=== PATIENT | female | born 1950 | race Caucasian/White ===

== ENCOUNTER 2018-09-29 10:57 | Emergency (ER) | payer MEDICARE ==
[~2018-09-29] VITALS: Ht 154.9 cm; Wt 83.0 kg
[2018-09-29] MEDS ORDERED: MAG-OX 400400 MG PO (11:14)
[2018-09-29] MEDS ORDERED: ASPIRIN81 MG PO (11:14)
[2018-09-29] MEDS ORDERED: LISINOPRIL20 MG PO (11:15)
[2018-09-29] MEDS ORDERED: CRESTOR10 MG PO (11:16)
[2018-09-29] MEDS ORDERED: D3 MAXIMUM5000 UNI1 PO (11:16)
[2018-09-29] MEDS ORDERED: ALLOPURINOL100 MG PO (11:17)
[2018-09-29] MEDS ORDERED: HYDRALAZINE25 MG PO (11:18)
[2018-09-29] MEDS ORDERED: TRESIBA FL100 UNIT/M SC (11:19)
[2018-09-29] MEDS ORDERED: TOPROL XL100 MG PO (11:19)
[2018-09-29] MEDS ORDERED: CLONIDINE0.1 MG PO (11:20)
[2018-09-29] MEDS ORDERED: HYDROCHLOROT25 MG PO (11:20)
[2018-09-29] MEDS ORDERED: NOVOLOG100 UNIT/M SC (11:21)
[2018-09-29 11:34] LABS: URINE BILIRUBIN - DIPSTICK NEGATIVE (NEGATIVE); URINE BLOOD DIPSTICK LARGE (NEGATIVE); URINE COLOR YELLOW; URINE GLUCOSE - DIPSTICK >=1000 mg/dL (NEGATIVE); URINE KETONE NEGATIVE (NEGATIVE); URINE LEUK ESTERASE NEGATIVE (NEGATIVE); URINE NITRITE - DIPSTICK NEGATIVE (Negative); URINE PROTEIN - DIPSTICK 100 mg/dL (NEG-TRACE); URINE SPECIFIC GRAVITY 1.025; URINE UROBILINOGEN - DIPSTICK 0.2 E.U./dL (0.2)
[2018-09-29 11:38] LABS: URINE CLARITY TURBID
[2018-09-29 11:57] LABS: URINE RBC TNTC RBC/hpf (0-5); URINE SQUAMOUS EPITHELIAL CELL FEW EPI/hpf (0-FEW)
[2018-09-29 12:22] LABS: HEMATOCRIT 37.6 % (37.0-47.0); HEMOGLOBIN 11.9 g/dl (12.0-16.0); IMMATURE GRANULOCYTES 1.3 % (0.0-5.0); MEAN CELL VOLUME 95.7 fL CALC (80.0-100.0); MEAN CORPUSCULAR HGB 30.3 pG CALC (26.0-32.0); MEAN CORPUSCULAR HGB CONC 31.6 g/L CALC (32.0-36.0); NEUT# 9.91 thou/uL (2.00-7.15); RED BLOOD COUNT 3.93 mill/uL (4.20-5.60); RED CELL DISTRI WIDTH 14.6 % (11.5-15.5)
[2018-09-29 12:46] LABS: ALBUMIN 3.1 g/dL (3.2-5.0); BILIRUBIN, TOTAL 0.3 mg/dL (0.0-1.4); CREATININE 2.7 mg/dL (0.5-1.0); POTASSIUM 5.1 mmol/l (3.5-5.1); TOTAL PROTEIN 5.8 g/dL (6.3-8.2)
[2018-09-29] MEDS ORDERED: CIPROFLOXACN500 MG PO (12:57)
[2018-09-29] MEDS ORDERED: PYRIDIUM200 MG PO (12:57)
[2018-09-29 12:59] VITALS: BP 170/65
== END 2018-09-29 13:00 | disposition home or self-care (01) ==
LOC: ED 10:57
PROVIDERS: Emergency Medicine
DX: N30.91 Cystitis, unspecified with hematuria (principal)

== ENCOUNTER 2018-09-29 18:13 | Inpatient (IN) | payer MEDICARE ==
[~2018-09-29] VITALS: Ht 154.9 cm; Wt 97.0 kg
[~2018-09-29 18:13] MED LIST: ALLOPURINOL100 MG PO; ASPIRIN81 MG PO; CIPROFLOXACN500 MG PO; CLONIDINE0.1 MG PO; CRESTOR10 MG PO; D3 MAXIMUM5000 UNI1 PO; HYDRALAZINE25 MG PO; HYDROCHLOROT25 MG PO; LISINOPRIL20 MG PO; MAG-OX 400400 MG PO; NOVOLOG100 UNIT/M SC; PYRIDIUM200 MG PO; TOPROL XL100 MG PO; TRESIBA FL100 UNIT/M SC
--- NOTE | 2018-09-29 18:22 | NUR ---
PT TO ROOM VIA WHEELCHAIR, CRYING IN PAIN.
--- NOTE | 2018-09-29 18:34 | NUR ---
PT RETURNS TO THE ER FOR INCREASED BACK PAIN THAT RADIATES TO THE FRONT ABDOMEN. HAS BACK SPASMS IN LUMBAR AREA, PAIN UPON PALPTION OF FLANKS. PT IS AOX4. PT DENIES ANY C/P, SOB, N/V OR WEAKNESS.
--- NOTE | 2018-09-29 19:18 | NUR ---
PT BECAME NAUSEATED AFTER MORPHINE ADMINISTRATION AND VOMITED. ZOFRAN GIVEN PER MD VERBAL ORDER. PT STATED RELIEF AFTER ZOFRAN ADMINISTRATION
[2018-09-29 19:39] LABS: HEMATOCRIT 41.7 % (37.0-47.0); HEMOGLOBIN 13.3 g/dl (12.0-16.0); IMMATURE GRANULOCYTES 2.2 % (0.0-5.0); MEAN CELL VOLUME 94.3 fL CALC (80.0-100.0); MEAN CORPUSCULAR HGB 30.1 pG CALC (26.0-32.0); MEAN CORPUSCULAR HGB CONC 31.9 g/L CALC (32.0-36.0); NEUT# 16.16 thou/uL (2.00-7.15); RED BLOOD COUNT 4.42 mill/uL (4.20-5.60); RED CELL DISTRI WIDTH 14.6 % (11.5-15.5)
[2018-09-29 20:17] LABS: ALBUMIN 3.6 g/dL (3.2-5.0); ALKALINE PHOSPHATASE 119 u/l (38-126); AMYLASE 76 u/l (30-110); ANION GAP 16 (6-22 (CALC)); BILIRUBIN, TOTAL 0.4 mg/dL (0.0-1.4); BUN 54 mg/dL (8-23); BUN/CREATININE RATIO 19 (12-20 (CALC)); CARBON DIOXIDE 23 mmol/l (22-30); CHLORIDE 104 mmol/l (95-108); CREATININE 2.8 mg/dL (0.5-1.0); GFR 17 ML/MIN (>=60 (CALC)); GFR FOR AFR.AMER. 21 ML/MIN (>=60 (CALC)); LIPASE 570 u/l (23-300); POTASSIUM 4.8 mmol/l (3.5-5.1); SGOT/AST 32 u/l (9-36); SODIUM 138 mmol/l (137-146); TOTAL PROTEIN 6.6 g/dL (6.3-8.2)
--- NOTE | 2018-09-29 20:18 | NUR ---
PT RESTING ON STRETCHER, STATES NO COMPLAINTS
[2018-09-29 20:28] LABS: MYOGLOBIN 151 ng/mL (0 - 62)
--- NOTE | 2018-09-29 21:18 | NUR ---
PT TREATED FOR PAIN
--- NOTE | 2018-09-29 21:33 | NUR ---
REPORT CALLED TO KAROLINE MARTINEZ ACCEPTED PT
--- NOTE | 2018-09-29 22:03 | NUR ---
PT ARRIVED TO FLOOR VIA STRETCHER AT 2203. PT A/OX3. PT CRYING AND STATIG SHE IS HAVING PAIN IN BILATERAL FLANK AREA THAT RADIATES TO UPPER MED ABDOME. LUNGS CLEAR. BOWEL SOUND HYPOACTIVE. PULSES STRONG IN ALL EXTREMITIES. IV PATENT. NO OPEN AREAS NOTED. PT OBSESE. PT DENIES FALLING OR USING ASSISTIVE DEVICES. PT BP ELEVATED. MONITORING BP HYDRLIZINE GIVEN IN ER. PT HAS VANCOMYCIN RUNNING,NO ADVERSE REACTION NOTED.PT ON TELE SINUS RHTHYM AT THIS CURRENT TIME. POC DISCUSSED. BED IN LOWEST POSITION. CALL LIGHT IN REACH. WILL CONTINUE TO MONITOR.
--- NOTE | 2018-09-29 22:11 | NUR ---
Admission Note Report Given to: KAROLINE MARTINEZ Transported by: Wheelchair X Stretcher Transported with: X Nurse Transporter X Patent IV O2 X Location Man TRANSPORTED [place] [facility] [place]
[2018-09-29 22:20] VITALS: BP 180/64
--- NOTE | 2018-09-29 23:32 | NUR ---
PHARMACY CALLED TO FOLLOW UP ON PAIN MEDICATION. PHARMACY TO PUT INTO SYSTEM ROBIN.
[2018-09-30] VITALS (8 sets, daily range): BP systolic 125–194; BP diastolic 48–89
--- NOTE | 2018-09-30 01:25 | NUR ---
DR YI CALLED BECAUSE DEMEROL 15MG INEFFECTIVE. ORDERS RECIEVED FOR MORPHINE 2MG IV Q6HRS. ORDERS FAXED
--- NOTE | 2018-09-30 01:48 | NUR ---
UNABLE TO PULL MORPHINE FROM [facility]. RN PLATFORM POWER TECHNICIAN NOTIFIED.
--- NOTE | 2018-09-30 04:43 | NUR ---
DR YI CALLED TO CLARIFY IF HE WANT A SECOND CT TO ABDOMEN. PT HAS ALREADY HAD CT TO ABDOMEN DONE FROM PREVIOUS ER VISIT ON 09/29/18. DR ORDERED TO D/C CT TO ABDOMEN. HE WILL SEE FIRST. RADIOLOGY MADE AWARE. RESULTS FROM PREVIOUS AT TO ABDOMEN FAXED AND PLACED IN CHART.
[2018-09-30 05:13] LABS: HEMATOCRIT 39.2 % (37.0-47.0); HEMOGLOBIN 12.3 g/dl (12.0-16.0); IMMATURE GRANULOCYTES 1.2 % (0.0-5.0); MEAN CELL VOLUME 96.1 fL CALC (80.0-100.0); MEAN CORPUSCULAR HGB 30.1 pG CALC (26.0-32.0); MEAN CORPUSCULAR HGB CONC 31.4 g/L CALC (32.0-36.0); NEUT# 13.32 thou/uL (2.00-7.15); RED BLOOD COUNT 4.08 mill/uL (4.20-5.60); RED CELL DISTRI WIDTH 14.6 % (11.5-15.5)
[2018-09-30 05:29] LABS: BILIRUBIN, TOTAL 0.3 mg/dL (0.0-1.4); CREATININE 2.7 mg/dL (0.5-1.0); MAGNESIUM 2.1 mg/dL (1.6-2.3); TOTAL PROTEIN 5.6 g/dL (6.3-8.2)
[2018-09-30 05:34] LABS: POTASSIUM 5.2 mmol/l (3.5-5.1)
--- NOTE | 2018-09-30 06:58 | NUR ---
PT RUNNING V TACH ON MONITOR. LEADS CHECKED/ PT RESTING IN BED WITH EYES CLOSED. EKG ORDERED.
--- NOTE | 2018-09-30 07:00 | NUR ---
SHIFT CHANGE REPORT, PT AWAKE ALERT AND ORIENTED, C/O ABDOMINAL DISCOMFORT BUT STATED SHE HAD RELIEF FROM MED GIVEN EARLIER, TELE MONITOR IN PLACE, IVF INFUSING, CALL HERNANDEZ IN REACH.
--- NOTE | 2018-09-30 07:25 | NUR ---
EKG COMPLETED. READING NORMAL SINUS RYTHM. RESULTS PLACED ON CHART FOR MD TO READ.
--- NOTE | 2018-09-30 08:23 | NUR ---
0750 CANVAS GOODS MAKER REPORTED HR IN 170'S, ON ASSESSMENT PT SITTING UP IN BED TO EAT AND C/O ABD PAIN ON LEFT SIDE RAIDATING TO BACK, MONITOR CONTACTED AND REPORTED HR BACK IN 60'S.
--- NOTE | 2018-09-30 13:15 | NUR ---
RELAXING IN BED AT THIS TIME, C/O PAIN FROM MID ABD RADIATING TO LEFT SIDE-BACK, EATING MEAL SLOWLY AT TIHS TIME, SAID SHE IS AFRAID PAIN WILL BE AGGRAVATED BY EATING, WILL CONTINUE TO MONITOR AND ADDRESS NEEDS.
[2018-09-30 15:07] LABS: URINE BILIRUBIN - DIPSTICK NEGATIVE (NEGATIVE); URINE BLOOD DIPSTICK NEGATIVE (NEGATIVE); URINE CLARITY CLEAR; URINE COLOR YELLOW; URINE GLUCOSE - DIPSTICK >=1000 mg/dL (NEGATIVE); URINE KETONE NEGATIVE (NEGATIVE); URINE LEUK ESTERASE NEGATIVE (Negative); URINE NITRITE - DIPSTICK POSITIVE (Negative); URINE PH 5.5 (4.5-8.0); URINE PROTEIN - DIPSTICK 100 mg/dL (NEG-TRACE); URINE SPECIFIC GRAVITY 1.015; URINE UROBILINOGEN - DIPSTICK 0.2 E.U./dL (0.2)
[2018-09-30 15:18] LABS: URINE BACTERIA FEW hpf; URINE SQUAMOUS EPITHELIAL CELL FEW EPI/hpf (0-FEW)
--- NOTE | 2018-09-30 16:07 | NUR ---
SITTING UP IN RECLINER, C/O BEING COLD, WARM BLANKET OFFERED, SATISFIED AND APPRECIATIVE, WILL CONTINUE TO MONITOR.
[2018-10-01] VITALS (7 sets, daily range): BP systolic 104–139; BP diastolic 37–67
--- NOTE | 2018-10-01 02:48 | NUR ---
pt resting in bed. eyes closed. no pain noted or voiced. bed in lowest positoin. call light within reach. milind jimenez.
[2018-10-01 05:35] LABS: HEMOGLOBIN 10.5 g/dl (12.0-16.0); IMMATURE GRANULOCYTES 1.3 % (0.0-5.0); MEAN CELL VOLUME 96.9 fL CALC (80.0-100.0); MEAN CORPUSCULAR HGB 29.9 pG CALC (26.0-32.0); MEAN CORPUSCULAR HGB CONC 30.9 g/L CALC (32.0-36.0); NEUT# 7.53 thou/uL (2.00-7.15); RED BLOOD COUNT 3.51 mill/uL (4.20-5.60); RED CELL DISTRI WIDTH 14.6 % (11.5-15.5)
[2018-10-01 06:04] LABS: ALBUMIN 2.5 g/dL (3.2-5.0); BILIRUBIN, TOTAL 0.2 mg/dL (0.0-1.4); MAGNESIUM 1.8 mg/dL (1.6-2.3); TOTAL PROTEIN 4.8 g/dL (6.3-8.2)
[2018-10-01 06:09] LABS: POTASSIUM 5.2 mmol/l (3.5-5.1)
--- NOTE | 2018-10-01 07:20 | NUR ---
SHIFT REPORT, PT AWAKE ALERT AND ORIENTED, NO CHANGE IN STATUS.
--- NOTE | 2018-10-01 09:11 | NUR ---
PT INCONTINENT OF LARGE AMOUNT OF URINE. PT AMBUALTED TO BATHROOM, PERICARE AND LINEN CHANGE PROVIDED. PT UP TO CHAIR AT BEDSIDE. DENIES ANY FURTHER NEEDS AT THIS TIME.
--- NOTE | 2018-10-01 19:10 | NUR ---
BEDSIDE REPORT RECEIVED FROM MICHELLE FERNANDEZ. PT SITTING UP IN BED WITH [facility] AT BEDSIDE; ALERT AND ORIENTED. C/O LEFT FLANK PAIN THAT RADIATES TO LEFT LOWER ABDOMEN. RESPIRATIONS EVEN AND UNLABORED ON ROOM AIR. PT CURRENTLY WITHOUT IV ACCESS; TELE ON. PLAN OF CARE DISCUSSSED. PT ENCOURAGED TO VERBALIZE CONCERNS. STATES UNDERSTANDING. SAFETY MEASURES IN PLACE. CALL LIGHT WITHIN REACH.
--- NOTE | 2018-10-01 19:45 | NUR ---
NEW IV SITE PLACED ON LFA; LR AT 75 REPLACED. MORPHINE AND ZOFRAN GIVEN FOR PAIN AND NAUSEA.
[2018-10-02 00:30] VITALS: BP 112/57
--- NOTE | 2018-10-02 01:10 | NUR ---
PT NOW SITTING UP IN RECLINER ON CELL PHONE; CIPRO INFUSING WITHOUT DIFFICULTY; IV SITE APPEARS HEALTHY. VS STABLE BEFORE CLONIDINE PO. PT PLEASANT AND TALKATIVE. ONE PERSON ASSIST. SAFETY MEASURES IN PLACE. CALL LIGHT WITHIN REACH.
[2018-10-02 04:30] VITALS: BP 119/50
--- NOTE | 2018-10-02 04:31 | NUR ---
PT STILL AWAKE AND UP IN CHAIR AND TALKING TO STAFF. NO ACUTE CHANGES IN CONDITION THROUGHOUT THE NIGHT. NO REQUESTS OR CONCERNS AT THIS TIME. SAFETY MEASURES IN PLACE. CALL LIGHT WITHIN REACH.
[2018-10-02 05:11] LABS: HEMATOCRIT 33.6 % (37.0-47.0); HEMOGLOBIN 10.6 g/dl (12.0-16.0); IMMATURE GRANULOCYTES 0.9 % (0.0-5.0); MEAN CELL VOLUME 96.6 fL CALC (80.0-100.0); MEAN CORPUSCULAR HGB 30.5 pG CALC (26.0-32.0); MEAN CORPUSCULAR HGB CONC 31.5 g/L CALC (32.0-36.0); NEUT# 6.7 thou/uL (2.00-7.15); RED BLOOD COUNT 3.48 mill/uL (4.20-5.60); RED CELL DISTRI WIDTH 14.6 % (11.5-15.5)
[2018-10-02 05:40] LABS: ALBUMIN 2.9 g/dL (3.2-5.0); BILIRUBIN, TOTAL 0.3 mg/dL (0.0-1.4); CREATININE 2.8 mg/dL (0.5-1.0); MAGNESIUM 1.7 mg/dL (1.6-2.3); TOTAL PROTEIN 5.4 g/dL (6.3-8.2)
[2018-10-02 07:35] VITALS: BP 131/42
--- NOTE | 2018-10-02 08:00 | NUR ---
SITTING UP IN RECLINER, STATES PAIN IMPROVED AND NOW TOLERABLE AND ONLY INTERMITTENLY, VERBALIZES DESIRE TO GO HOME TODAY, EDUCATED REAGRDING D/C PROCESS AND VERBALIZES UNDERSTANDING, AM ASSESSMENT COMPLETED; SEE INTERVENTIONS, CALL HERNANDEZ WITHIN REACH, IVF CONTINUE, AND ACCU CHECK COMPLETED ORDERED, COVERAGE GIVEN PER PROTOCOL, WILL CONTINUE TO MONITOR.
--- NOTE | 2018-10-02 10:00 | NUR ---
CALL HERNANDEZ WITHIN REACH, REMAINS SITTING UP IN RECLINER. OFFERS NO NEW COMPLAINTS, WILL CONTINUE TO MONITOR.
[2018-10-02 11:44] VITALS: BP 148/50
[2018-10-02 11:55] VITALS: BP 148/50
--- NOTE | 2018-10-02 12:40 | NUR ---
PT REMAINS SITTING UP IN RECLINER, OFFERS NO NEW COMPLAINTS, CALL HERNANDEZ WITHIN REACH, WILL CONTINUE TO MONITOR.
--- NOTE | 2018-10-02 14:29 | NUR ---
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
--- NOTE | 2018-10-02 15:18 | NUR ---
D/C INSTRUCTIONS DISCUSSED, PT TO CALL [facility] FOR TRANSPORT HOME, CALL HERNANDEZ WITHIN REACH, WILL CONTINUE TO MONITOR.
--- NOTE | 2018-10-02 15:55 | NUR ---
Discharge instructions given. Patient verbalizes understanding of same. Discharged in stable condition via Wheelchair to Home with family. All belongings sent with pt.
== END 2018-10-02 15:57 | disposition home or self-care (01) | DRG 690 ==
LOC: ED 18:13 → ED-I 18:28 → ED 20:28 → MS2 20:29
PROVIDERS: Emergency Medicine; ADMIT Internal Medicine Nephrology; ATTEND Internal Medicine Nephrology
DX: N12 Tubulo-interstitial nephritis, not specified as acute or chronic (principal); Z68.41 Body mass index [BMI] 40.0-44.9, adult; N17.9 Acute kidney failure, unspecified; I12.9 Hypertensive chronic kidney disease with stage 1 through stage 4 chronic kidney disease, or unspecified chronic kidney disease; E11.22 Type 2 diabetes mellitus with diabetic chronic kidney disease; N18.4 Chronic kidney disease, stage 4 (severe); E78.5 Hyperlipidemia, unspecified; D63.1 Anemia in chronic kidney disease; E66.9 Obesity, unspecified; M10.9 Gout, unspecified
CPT/HCPCS: S0073

== ENCOUNTER 2019-07-03 18:58 | Inpatient (IN) | payer MEDICARE ==
[~2019-07-03] VITALS: Ht 154.9 cm; Wt 86.8 kg
--- NOTE | 2019-07-03 18:59 | NUR ---
BY WC TO ROOM
[2019-07-03 19:58] LABS: HEMATOCRIT 36.4 % (37.0-47.0); HEMOGLOBIN 11.5 g/dl (12.0-16.0); IMMATURE GRANULOCYTES 0.5 % (0.0-5.0); MEAN CELL VOLUME 94.3 fL CALC (80.0-100.0); MEAN CORPUSCULAR HGB 29.8 pG CALC (26.0-32.0); MEAN CORPUSCULAR HGB CONC 31.6 g/L CALC (32.0-36.0); NEUT# 15.98 thou/uL (2.00-7.15); RED BLOOD COUNT 3.86 mill/uL (4.20-5.60); RED CELL DISTRI WIDTH 14.6 % (11.5-15.5)
--- NOTE | 2019-07-03 19:58 | NUR ---
NASAL AND ORAL SWAB COMPLETE. BLOOD CULTURES DONE. PATIENT RESTING IN BED, NO S/S OF DISTRESS. ABLE TO MAKE NEEDS KNOWN.
[2019-07-03 20:20] LABS: ALBUMIN 3.6 g/dL (3.2-5.0); ALKALINE PHOSPHATASE 106 u/l (38-126); ANION GAP 13 (6-22 (CALC)); BILIRUBIN, TOTAL 0.3 mg/dL (0.0-1.4); BUN 62 mg/dL (8-23); BUN/CREATININE RATIO 20 (12-20 (CALC)); CARBON DIOXIDE 25 mmol/l (22-30); CHLORIDE 106 mmol/l (95-108); CREATININE 3.1 mg/dL (0.5-1.0); GFR 15 ML/MIN (>=60 (CALC)); GFR FOR AFR.AMER. 18 ML/MIN (>=60 (CALC)); LIPASE 127 u/l (23-300); MAGNESIUM 2.2 mg/dL (1.6-2.3); POTASSIUM 4.4 mmol/l (3.5-5.1); SGOT/AST 24 u/l (9-36); SODIUM 140 mmol/l (137-146)
--- NOTE | 2019-07-03 21:52 | NUR ---
PT ARRIVED TO FLOOR ON STRETCHER ACCOMPANIED BY ED NURSES X2. PT WAS ABLE TO AMBULATE TO STANDING SCALE AND TO BED. PT APPEARS TO BE IN STABLE CONDITION AT THIS TIME. PT ORIENTED TO ROOM,CALL SYSTEM, LIGHTS, BED AND TV. AIDE IN OBTAINING V/S. WILL FOLLOW-UP WITH FULL ASSESSMENT AND ANY MEDICATIONS ORDERS PROVIDE.
--- NOTE | 2019-07-03 21:54 | NUR ---
Admission Note Report Given to: MICHELLE BROWN Transported by: Wheelchair X Stretcher Transported with: X Nurse Transporter X Patent IV X O2 Color Print Inspector PT REPORT GIVEN TO MICHELLE BROWN. TRANSPORTED TO [place] VIA STRETCHER.
[2019-07-03 22:23] VITALS: BP 135/58
--- NOTE | 2019-07-03 22:49 | NUR ---
PT ASSESSMENT COMPLETED. PT IS VERY TALKATIVE AND REPORTS FEELING MUCH BETTER AFTER HAVING BREATHING TREATMENT IN ED. DENIES PAIN/N/V. POC DISCUSSED W/PT AND PT INSTRUCTED THAT WE NEED URINE,SPUTUM AND MRSA SAMPLE IF SHE IS OKAY WITH THIS, VERBALIZED UNDERSTANDING AND APPROVAL. PT SWABBED TO [place] FOR HISTORY OF MRSA AND CALL TO REGISTRATION WAS MADE TO COLLECT ORANGE ALERT BAND FOR PRECAUTIONS. NO S/O DISTRESS AT THIS TIME. WILL CONTINUE TO MONITOR. LUNG SOUNDS ARE WHEEZY THROUGHOUT. CALL LIGHT IS AT SIDE AND PT ENCOURAGED TO CALL. PT IS ASKING FOR FOOD/DRINK, PROVIDED.
[2019-07-03 22:50] VITALS: BP 154/59
[2019-07-04] VITALS (8 sets, daily range): BP systolic 146–187; BP diastolic 51–79
[2019-07-04 01:34] LABS: URINE BILIRUBIN - DIPSTICK NEGATIVE (NEGATIVE); URINE BLOOD DIPSTICK TRACE-INTACT (NEGATIVE); URINE COLOR YELLOW; URINE GLUCOSE - DIPSTICK 100 mg/dL (NEGATIVE); URINE KETONE NEGATIVE (NEGATIVE); URINE LEUK ESTERASE NEGATIVE (NEGATIVE); URINE NITRITE - DIPSTICK NEGATIVE (Negative); URINE PROTEIN - DIPSTICK 100 mg/dL (NEG-TRACE); URINE SPECIFIC GRAVITY 1.015; URINE UROBILINOGEN - DIPSTICK 0.2 E.U./dL (0.2)
[2019-07-04 01:43] LABS: URINE SQUAMOUS EPITHELIAL CELL FEW EPI/hpf (0-FEW); URINE WBC 0-2 WBC/hpf (0-5)
[2019-07-04 01:45] LABS: URINE EPITHELIAL CELLS FEW EPI/hpf (0-FEW)
--- NOTE | 2019-07-04 04:40 | NUR ---
MICHAEL IS IN W/PT OBTAINING V/S AT THIS TIME. PT WAS SLEEPING. LAB NOW IN W/PT ALSO. WHEN PHYSICAL THERAPY ATTENDANT ASKED IF PT HAS ANY NEEDS AT THIS TIME, SHE REPLIED, "YES TO BE LEFT ALONE TO SLEEP."
[2019-07-04 04:51] LABS: HEMATOCRIT 37.5 % (37.0-47.0); HEMOGLOBIN 11.9 g/dl (12.0-16.0); IMMATURE GRANULOCYTES 1.2 % (0.0-5.0); MEAN CELL VOLUME 93.1 fL CALC (80.0-100.0); MEAN CORPUSCULAR HGB 29.5 pG CALC (26.0-32.0); MEAN CORPUSCULAR HGB CONC 31.7 g/L CALC (32.0-36.0); NEUT# 15.06 thou/uL (2.00-7.15); RED BLOOD COUNT 4.03 mill/uL (4.20-5.60); RED CELL DISTRI WIDTH 14.4 % (11.5-15.5)
[2019-07-04 05:14] LABS: ALBUMIN 3.3 g/dL (3.2-5.0); BILIRUBIN, TOTAL 0.3 mg/dL (0.0-1.4); CREATININE 2.9 mg/dL (0.5-1.0); TOTAL PROTEIN 6.2 g/dL (6.3-8.2)
[2019-07-04 05:22] LABS: POTASSIUM 5.3 mmol/l (3.5-5.1)
--- NOTE | 2019-07-04 07:10 | NUR ---
REPORT RECEIVED FROM MICHELLE BROWN;PT RESTING IN SEMI FOWLERS POSITION;INTRODUCED SELF TO PT AND POC DISCUSSED;RESPIRATIONS SHALLOW ON O2 @ 2L VIA NC;PT DENIES ANY CURRENT PAIN OR DISCOMFORTS;TELE MONITORING IN PLACE;PT ENCOURAGED TO CALL FOR ASSISTANCE IF NEEDED;FALL PRECAUTIONS NOTED WITH BED IN THE LOWEST POSITION AND CALL LIGHT IN REACH;CONTACT PRECAUTIONS NOTED FOR HX OF MRSA;WILL CONTINUE TO MONITOR
--- NOTE | 2019-07-04 08:25 | NUR ---
PT AMBULATING BACK FROM RESTROOM WITH A STEADY GAIT AFTER HAVING A LARGE/LOOSE BM;RE-POSITIONED BACK INTO BED;A&O X3; VS OBTAINED AND ASSESSMENT COMPLETED, CURRENT BP 187/70 HR 86;ALL MORNING MEDICATIONS TO BE ADMINISTERED;PT DENIES ANY CURRENT PAIN OR DISCOMFORTS, REPORTS SOB ON EXERTION;PAIN SCALE AND REPORTING EDUCATED;RESPIRATIONS EVEN AND UNLABORED, SHALLOW ON O2 @ 2L VIA NC,COARSE/WHEEZY LUNG SOUNDS;NON-PRODUCTIVE COUGH NOTED AT TIMES;ABDOMEN DISTENDED/SOFT ON PALPATION AND ACTIVE IN ALL FOUR QUADRANTS;WEAK PEDAL PULSES;SKIN INTACT;TELE MONITORING IN PLACE;#20G TO LAC FLUSHED AND PATENT,SITE APPEARS HEALTHY;ACCUCHECK 373, PT TO BE COVERED WITH SLIDING SCALE NOVOLOG;PT DENIES ANY ADDITIONAL NEEDS AND IS ENCOURAGED TO CALL FOR ASSISTANCE IF NEEDED;CALL LIGHT IN REACH;WILL CONTINUE TO MONITOR
--- NOTE | 2019-07-04 11:47 | NUR ---
AT BEDSIDE DISCUSSING POC.
--- NOTE | 2019-07-04 11:54 | NUR ---
NOTIFIED OF ELEVATED BLOOD SUGAR OF 428. ORDER RECEIVED FOR AN ADDITIONAL 6 UNITS OF NOVOLOG TO BE ADMINISTERED IN ADDITION TO THE 14 UNITS ALREADY SCHEDULED.TOTALING 20 UNITS.
--- NOTE | 2019-07-04 12:00 | NUR ---
PT OOB RESTING IN RECLINER EATING LUNCH;RESPIRATIONS EVEN AND UNLABORED ON RA;PT DENIES ANY CURRENT PAIN OR DISCOMFORTS;PT STATES "I FEEL LIKE A NEW PERSON AFTER MY SHOWER, I DONT EVEN NEED MY OXYGEN", O2 REMAINS AT BEDSIDE NEEDED;TELE MONITORING IN PLACE;ACCUCHECK WAS 428, PT TO BE COVERED WITH A TOTAL OF 20 UNITS OF NOVOLOG PER MD;PT DENIES ANY ADDITIONAL NEEDS AT THIS TIME AND IS ENCOURAGED TO CALL FOR ASSISTANCE IF NEEDED;CALL LIGHT IN REACH;WILL CONTINUE TO MONITOR
--- NOTE | 2019-07-04 15:30 | NUR ---
PT OOB RESTING IN RECLINER;RESPIRATIONS EVEN AND UNLABORED ON RA;BLOOD PRESSURE BY HELENA KLINE REPORTED BP 171/75 HR 88.MANUAL PRESSURE TAKEN BY THIS WRITTER BP CURRENTLY 146/69 HR 97;TELE MONITORING IN PLACE;IV SITE TO LAC PATENT;ASSESSMENT REMAINS UNCHANGED AT THIS TIME;PT DENIES ANY ADDITIONAL NEEDS;ENCOURAGED TO CALL FOR ASSISTANCE IF NEEDED;CALL LIGHT IN REACH;WILL CONTINUE TO MONITOR
--- NOTE | 2019-07-04 17:54 | NUR ---
1700 GLUOCOSE READING CRITICAL ON THE METER. STAT GLUCOSE OBTAINED BY LAB RESULTING IN 496. CALLED AND NOTIFIED OF CRITICAL BLOOD SUGAR READING.NO NEW ORDERS RECEIVED AT THIS TIME. PT TO BE MEDICATED WITH SCHEDULED NOVOLOG PER DEC.WILL CONTINUE TO MONITOR
--- NOTE | 2019-07-04 19:22 | NUR ---
PT SITTING IN RECLINER TALKING ON CELL PHONE. AIDE IN OBTAINING V/S. NO S/O DISTRESS. WILL FOLLOW-UP W/MEDICATIONS NEEDED AND ASSESSMENT.
--- NOTE | 2019-07-04 22:23 | NUR ---
PT MEDICATED ORDERS PROVIDE. POC DISCUSSED ALONG W/MEDICATION EDUCATION. PT VERBALIZES UNDERSTANDING. LOCX4. PT HAVING SPASTIC COUGHING SPELL WHILE I WAS IN THE ROOM. I ASSISTED PT TO LEAN BACK A LITTLE AND TRY TO RELAX, THE COUGHING STOPPED DID NOT COUGH ANYMORE THE REST OF THE TIME I WAS IN THE ROOM. PT DENIED ANY OTHER NEEDS FOR COMFORT. CALL LIGHT IS AT SIDE AND PT ENCOURAGED TO CALL IF ANY NEEDS ARISE.
[2019-07-05] VITALS (7 sets, daily range): BP systolic 143–186; BP diastolic 59–88
--- NOTE | 2019-07-05 02:00 | NUR ---
PT SLEEPING AT THIS TIME. NO S/O DISTRESS NOTED. CALL LIGHT AT BEDSIDE.
--- NOTE | 2019-07-05 03:42 | NUR ---
PT CALLED, UPON AIDE ENTERING ROOM, PT WAS COUGHING AND CRYING AND STATING THAT SHE WOKE UP AND FELT LIKE SHE COULDN'T BREATHE. AIDE CALLED RESTAURANT FRONT MANAGER TO REPORT AND PROCEEDED TO TALK W/PT AND CALM HER DOWN. UPON RESTAURANT FRONT MANAGER ENTERING ROOM, PT WAS STILL CRYING, BUT NO LONGER COUGHING AND APPEARED TO BE CALMING. BACK PERCUSSIONS WERE PROVIDED BY RESTAURANT FRONT MANAGER/PER PT REQUEST. PT STATES SHE IS FEELING MUCH IMPROVED. PT STARTED TALKING AND PROCEEDED TO TELL RESTAURANT FRONT MANAGER AND AIDE ABOUT MEETING HER AND HER "LOVE STORY." RT ARRIVED FOR BREATHING TREATMENT REQUESTED. PT LEFT CALM W/RT IN ROOM.
[2019-07-05 05:09] LABS: HEMATOCRIT 35.5 % (37.0-47.0); HEMOGLOBIN 11.7 g/dl (12.0-16.0); MEAN CELL VOLUME 91.7 fL CALC (80.0-100.0); MEAN CORPUSCULAR HGB 30.2 pG CALC (26.0-32.0); RED BLOOD COUNT 3.87 mill/uL (4.20-5.60); RED CELL DISTRI WIDTH 14.4 % (11.5-15.5)
[2019-07-05 05:30] LABS: CREATININE 3.3 mg/dL (0.5-1.0); POTASSIUM 4.7 mmol/l (3.5-5.1)
--- NOTE | 2019-07-05 06:09 | NUR ---
PT MEDICATED ORDERS PROVIDE. NO S/O DISTRESS, PT WAS SLEEPING SOUNDLY WHEN I ENTERED THE ROOM. CALL LIGHT AT SIDE, PT RETURNING TO SLEEP.
--- NOTE | 2019-07-05 07:10 | NUR ---
REPORT RECEIVED FROM MICHELLE BROWN;PT RESTING IN SEMI FOWLERS POSITION;INTRODUCED SELF TO PT AND POC DISCUSSED;RESPIRATIONS EVEN AND UNLABORED ON O2 @ 2L VIA NC;PT DENIES ANY CURRENT PAIN OR DISCOMFORTS;TELE MONITORING IN PLACE;PT DENIES ANY ADDITIONAL NEEDS AT THIS TIME AND IS ENCOURAGED TO CALL FOR ASSISTANCE IF NEEDED;CONTACT PRECAUTIONS REMAIN IN PLACE FOR HX OF MRSA;CALL LIGHT IN REACH;WILL CONTINUE TO MONITOR
--- NOTE | 2019-07-05 07:55 | NUR ---
PT RESTING IN SEMI FOWLERS POSITION POSITION, A&O X3;VS OBTAINED AND ASSESSMENT COMPLETED, BP CURRENTLY 176/59 HR 81. ALL MORNING MEDICATIONS TO BE ADMINISTERED;PT DENIES ANY CURRENT PAIN OR DISCOMFORTS,PAIN SCALE AND REPORTING EDUCATED;RESPIRATIONS EVEN AND UNLABORED,SHALLOW ON O2 @ 2L VIA NC;ABDOMEN DISTENDED/SOFT ON PALPATION AND ACTIVE IN ALL 4 QUADRANTS;WEAK PEDAL PULSES;SKIN INTACT;TELE MONITORING IN PLACE;#20G TO LAC FLUSHED AND PATENT,SITE APPEARS HEALTHY;ACCUCHECK 368, PT TO BE COVERED WITH SLIDING SCALE NOVOLOG;PT DENIES ANY ADDITIONAL NEEDS AT THIS TIME AND IS ENCOURAGED TO CALL FOR ASSISTANCE IF NEEDED;FALL PRECAUTIONS IN PLACE WITH CALL LIGHT IN REACH;WILL CONTINUE TO MONITOR
--- NOTE | 2019-07-05 08:30 | NUR ---
NOTIFIED OF PATIENTS CONSTANT HIGH BLOOD SUGAR, NO NEW ORDERS RECEIVED.
--- NOTE | 2019-07-05 09:35 | NUR ---
BP RE-CHECK 143/78 HR 91
--- NOTE | 2019-07-05 10:35 | NUR ---
AT BEDSIDE DISCUSSING POC INCLUDING DECREASE SOLUMEDROL DOSE AND INCREASING NOVOLOG DOSAGE, PT VERBALIZES UNDERSTANDING.
--- NOTE | 2019-07-05 11:08 | NUR ---
PT ACCUCHECK RESULTING IN 423, NOTIFIED AND ORDERED ADDITIONAL 6 UNITS OF NOVOLOG WITH LUNCH TOTALING 40 UNITS.
--- NOTE | 2019-07-05 11:45 | NUR ---
PT OOB RESTING IN RECLINER;RESPIRATIONS EVEN AND UNLABORED ON RA;PT DENIES ANY CURRENT PAIN OR DISCOMFORTS;TELE MONITORING IN PLACE;IV SITE TO LAC PATENT;ACCUCHECK 423, PT TO BE COVERED WITH 34 UNITS OF NOVOLOG AND AN ADDITIONAL 6 UNITS FOR ELEVATED BLOOD SUGAR PER MD, TOTALING IN 40 UNITS;CONTACT PRECAUTIONS REMOVED DUE TO FINAL NEG REPORT OF MRSA;PT DENIES ANY ADDITIONAL NEEDS AT THIS TIME AND IS ENCOURAGED TO CALL FOR ASSISTANCE IF NEEDED;CALL LIGHT IN REACH;WILL CONTINUE TO MONITOR
--- NOTE | 2019-07-05 15:25 | NUR ---
PT OOB RESTING IN RECLINER;RESPIRATIONS EVEN AND UNLABORED ON RA;PT DENIES ANY CURRENT PAIN OR DISCOMFORTS;TELE MONITORING IN PLACE;IV SITE TO LAC PATENT;ASSESSMENT REMAINS UNCHANGED AT THIS TIME;ENCOURAGED TO CALL FOR ASSISTANCE IF NEEDED;CALL LIGHT IN REACH;WILL CONTINUE TO MONITOR
--- NOTE | 2019-07-05 18:28 | NUR ---
PT CURRENT BP 190/93. PT MEDICATED WITH CATAPRES 0.2MG PO;WILL MONITOR FOR EFFECTIVENESS
--- NOTE | 2019-07-05 19:00 | NUR ---
BP RE-CHECK 170/85 HR 83
--- NOTE | 2019-07-05 20:35 | NUR ---
PT MEDICATED ORDERS PROVIDE AND ASSESSMENT COMPLETED AT THIS TIME. NO S/O DISTRESS OR SOB AT THIS TIME. PT SITTING IN RECLINER W/TV AND LIGHTS ON AND VERY TALKATIVE. PT APEARS TO BE IN GOOD SPIRITS AND REPORTS FEELING BETTER TODAY. WILL CONTINUE TO MONITOR. MILD WHEEZE THROUGHOUT LUNGS, NO NOTED EDEMA. IV SITE APPEARS HEALTHY.
[2019-07-06] VITALS (12 sets, daily range): BP systolic 145–188; BP diastolic 60–80
--- NOTE | 2019-07-06 00:25 | NUR ---
PT SLEEPING, AIDE IN W/PT. NO S/O DISTRESS NOTED. WILL CONTINUE TO MONITOR.
[2019-07-06 05:41] LABS: HEMATOCRIT 34.7 % (37.0-47.0); MEAN CELL VOLUME 92.5 fL CALC (80.0-100.0); MEAN CORPUSCULAR HGB 29.3 pG CALC (26.0-32.0); MEAN CORPUSCULAR HGB CONC 31.7 g/L CALC (32.0-36.0); RED BLOOD COUNT 3.75 mill/uL (4.20-5.60); RED CELL DISTRI WIDTH 14.5 % (11.5-15.5)
[2019-07-06 06:15] LABS: CREATININE 3.5 mg/dL (0.5-1.0); POTASSIUM 4.9 mmol/l (3.5-5.1)
--- NOTE | 2019-07-06 06:28 | NUR ---
LAB CALLED TO NOTIFY MUSIC ORCHESTRATOR OF CRITICAL BUN OF 84 UP FROM 72 PRIOR DAY. PHYSICIAN NOTIFIED.
--- NOTE | 2019-07-06 07:46 | NUR ---
PT A/O X3. SPEECH IS CLEAR. RESP SHALLOW. NONPRODUCTIVE COUGH NOTED; PT C/O CHEST DISCOMFORT FROM COUGH. O2 @2L AT BEDSIDE NEEDED. UPPER LOBES DIMINISHED; LOWER LOBES WHEEZING. BOWEL SOUNDS ACTIVE 4. STRONG RADIAL/PEDAL PULSES. #20 LAC SL. FLUSHED AND PATENT. SITE APPEARS HEALTHY. SKIN INTACT. PT DENIES ANY PNEEDS AT THIS TIME. POC DISCUSSED. SAFETY PRECAUTIONS IN PLACE. CALL LIGHT IN REACH. WILL CONTINUE TO MONITOR.
--- NOTE | 2019-07-06 11:59 | NUR ---
PT EATING IN RECLINER. NO C/O PAIN OR NEEDS. CALL LIGHT IN REACH. WILL CONTINUE TO MONITOR.
--- NOTE | 2019-07-06 14:19 | NUR ---
DR. MTZ IN TO SEE PT
[2019-07-06] MEDS ORDERED: AMIODARONE200 MG PO (15:32)
--- NOTE | 2019-07-06 16:55 | NUR ---
PT WATCHING TELEVISION. NO C/O PAIN OR NEEDS. CALL LIGHT IN REACH. WILL CONTINUE TO MONITOR.
--- NOTE | 2019-07-06 19:21 | NUR ---
REPORT FROM JACQUI CASE. PT SITTING UP IN CHAIR AT BEDSIDE. ALERT AND ORIENTED. PT VERY TALKATIVE. NO APPARENT RESPIRATORY DISTRESS NOTED. PT DENIES ANY PAIN OR DISCOMFORT AT THIS TIME. IV SITE APPEARS HEALTHY. NATIONAL STORMWATER LEADER. DISCUSSED POC. PT VERBALIZED UNDERSTANDING. CALL LIGHT WITHIN REACH. WILL CONTINUE TO MONITOR.
--- NOTE | 2019-07-07 00:10 | NUR ---
PT BP CONTINUE TO BE ELEVATED. PT VOICES ANXIETY ABOUT NUMEROUS THINGS. ENCOURAGE PT TO RELAX AND GET SOME REST. MANUAL BP 190/82. RN ON SHIFT ADMINISTERED PRN IV APRESOLINE AT THIS TIME. WILL CONTINUE TO MONITOR.
[2019-07-07 01:27] VITALS: BP 173/77
--- NOTE | 2019-07-07 01:28 | NUR ---
ER PHYSICIAN NOTIFIED OF PT CONTINUOUS TELEMETRY READING OF BIGEMINY. NO NEW ORDERS AT THIS TIME JUST CONTINUE TO MONITOR.
--- NOTE | 2019-07-07 02:41 | NUR ---
PT MEDICATED WITH PRN CLONIDINE FOR ELEVATED BP. WILL CONTINUE TO MONITOR.
[2019-07-07 03:50] VITALS: BP 174/87
[2019-07-07 05:15] LABS: HEMATOCRIT 39.1 % (37.0-47.0); HEMOGLOBIN 12.6 g/dl (12.0-16.0); IMMATURE GRANULOCYTES 2.9 % (0.0-5.0); MEAN CELL VOLUME 91.8 fL CALC (80.0-100.0); MEAN CORPUSCULAR HGB 29.6 pG CALC (26.0-32.0); MEAN CORPUSCULAR HGB CONC 32.2 g/L CALC (32.0-36.0); NEUT# 23.03 thou/uL (2.00-7.15); RED BLOOD COUNT 4.26 mill/uL (4.20-5.60); RED CELL DISTRI WIDTH 14.4 % (11.5-15.5)
[2019-07-07 05:21] VITALS: BP 155/66
--- NOTE | 2019-07-07 05:22 | NUR ---
CURRENT BP 155/66. RESTING IN BED. NO APPARENT DISTRESS. CALL LIGHT WITHIN REACH. WILL CONTINUE TO MONITOR.
[2019-07-07 05:34] LABS: CREATININE 3.5 mg/dL (0.5-1.0); POTASSIUM 4.6 mmol/l (3.5-5.1)
--- NOTE | 2019-07-07 07:58 | NUR ---
SHIFT CHANGE REPORT, PT AWAKE ALERT AND ORIENTED SITTING UP IN BED, STATES SHE HAD SOME CHEST DISCOMFORT DURING THE NIGHT BUT FEELS MUCH BETTER AT THIS TIME, TELE MONITOR IN PLACE, CALL HERNANDEZ IN REACH.
[2019-07-07 08:12] VITALS: BP 139/57
[2019-07-07 10:45] VITALS: BP 167/72
--- NOTE | 2019-07-07 12:15 | NUR ---
DR MTZ ROUNDED AND DISCUSSED D/C PLANS, PT STATED UNDERSTANDING AND HAD ALL QUESTIONS ADDRESSED.
[2019-07-07] MEDS ORDERED: PREDNISONE10 MG PO (13:07)
[2019-07-07] MEDS ORDERED: Levaquin PO (13:07)
[2019-07-07 14:30] VITALS: BP 141/81
--- NOTE | 2019-07-07 15:34 | NUR ---
Discharge instructions given. Patient verbalizes understanding of same. Discharged in stable condition via Wheelchair to Home with family. All belongings sent with pt.
== END 2019-07-07 15:30 | disposition home or self-care (01) | DRG 193 ==
LOC: ED 18:58 → ED-I 20:40 → ED 20:58 → MS2 20:59
PROVIDERS: Internal Medicine; ADMIT Internal Medicine; ATTEND Internal Medicine
DX: J18.9 Pneumonia, unspecified organism (principal); J96.01 Acute respiratory failure with hypoxia; J44.1 Chronic obstructive pulmonary disease with (acute) exacerbation; N18.4 Chronic kidney disease, stage 4 (severe); N17.9 Acute kidney failure, unspecified; J44.0 Chronic obstructive pulmonary disease with (acute) lower respiratory infection; E11.22 Type 2 diabetes mellitus with diabetic chronic kidney disease; I12.9 Hypertensive chronic kidney disease with stage 1 through stage 4 chronic kidney disease, or unspecified chronic kidney disease; E78.5 Hyperlipidemia, unspecified; F17.210 Nicotine dependence, cigarettes, uncomplicated; F41.9 Anxiety disorder, unspecified; E11.65 Type 2 diabetes mellitus with hyperglycemia; I48.91 Unspecified atrial fibrillation; T38.0X5A Adverse effect of glucocorticoids and synthetic analogues, initial encounter; Z79.84 Long term (current) use of oral hypoglycemic drugs
CPT/HCPCS: J1650; J1956

== ENCOUNTER 2022-07-31 09:55 | Observation (INO) | payer MEDICARE ==
[~2022-07-31] VITALS: Ht 157.5 cm; Wt 86.0 kg
[~2022-07-31 09:55] MED LIST changes: +AMIODARONE200 MG PO; +Levaquin PO; +PREDNISONE10 MG PO
[2022-07-31 10:27] LABS: IMMATURE GRANULOCYTES 0.5 % (0.0-5.0); MEAN CORPUSCULAR HGB 31.3 pG CALC (26.0-32.0); MEAN CORPUSCULAR HGB CONC 31.2 g/dL CAL (32.0-36.0); NEUT# 13.78 thou/uL (2.00-7.15); RED CELL DISTRI WIDTH 15.6 % (11.5-15.5)
[2022-07-31 10:35] LABS: HEMATOCRIT 30.1 % (37.0-47.0); HEMOGLOBIN 9.4 g/dl (12.0-16.0); MEAN CELL VOLUME 100.3 fL CALC (80.0-100.0)
[2022-07-31 10:41] LABS: ALBUMIN 3.2 g/dL (3.2-5.0); ALKALINE PHOSPHATASE 121 u/l (38-126); CHLORIDE 103 mmol/l (95-108); LIPASE 108 u/l (23-300); POTASSIUM 4.9 mmol/l (3.5-5.1); SODIUM 136 mmol/l (137-146)
[2022-07-31 10:44] LABS: ANION GAP 20 (6-22 (CALC)); BUN/CREATININE RATIO 8 (12-20 (CALC)); CARBON DIOXIDE 18 mmol/l (22-30); GFR FOR AFR.AMER. 4 ML/MIN (>=60 (CALC)); GFR OTHER RACES 4 ML/MIN (>=60 (CALC)); SGOT/AST 134 u/l (9-36)
[2022-07-31 10:45] LABS: BUN 87 mg/dL (8-23); CREATININE 10.6 mg/dL (0.5-1.0); MAGNESIUM 3.9 mg/dL (1.6-2.3)
[2022-07-31 12:11] LABS: URINE BILIRUBIN - DIPSTICK NEGATIVE (NEGATIVE); URINE BLOOD DIPSTICK TRACE-INTACT (NEGATIVE); URINE COLOR YELLOW; URINE GLUCOSE - DIPSTICK 100 mg/dL (NEGATIVE); URINE KETONE NEGATIVE (NEGATIVE); URINE LEUK ESTERASE NEGATIVE (NEGATIVE); URINE PH 6.5 (4.5-8.0); URINE PROTEIN - DIPSTICK >=300 mg/dL (NEG-TRACE); URINE UROBILINOGEN - DIPSTICK 0.2 E.U./dL (0.2)
[2022-07-31 12:22] LABS: URINE EPITHELIAL CELLS MODERATE EPI/hpf (0-FEW); URINE MUCUS MODERATE hpf (NONE-FEW); URINE NITRITE - DIPSTICK NEGATIVE (Negative); URINE RBC 0-2 RBC/hpf (0-5)
[2022-07-31 14:39] VITALS: BP 155/60
[2022-07-31 18:59] VITALS: BP 170/60
[2022-08-01] VITALS (8 sets, daily range): BP systolic 125–180; BP diastolic 37–70
[2022-08-01 05:47] LABS: HEMATOCRIT 27.9 % (37.0-47.0); HEMOGLOBIN 8.8 g/dl (12.0-16.0); MEAN CELL VOLUME 100.7 fL CALC (80.0-100.0); MEAN CORPUSCULAR HGB 31.8 pG CALC (26.0-32.0); MEAN CORPUSCULAR HGB CONC 31.5 g/dL CAL (32.0-36.0); RED BLOOD COUNT 2.77 mill/uL (4.20-5.60); RED CELL DISTRI WIDTH 15.8 % (11.5-15.5)
[2022-08-01 06:11] LABS: ALBUMIN 2.8 g/dL (3.2-5.0); POTASSIUM 5.1 mmol/l (3.5-5.1)
[2022-08-01 06:29] LABS: CREATININE 10.5 mg/dL (0.5-1.0)
[2022-08-02 00:11] VITALS: BP 157/45
[2022-08-02 04:00] VITALS: BP 183/53
[2022-08-02 06:23] LABS: ALBUMIN 2.6 g/dL (3.2-5.0); MAGNESIUM 3.2 mg/dL (1.6-2.3); POTASSIUM 4.3 mmol/l (3.5-5.1)
[2022-08-02 06:54] VITALS: BP 156/48
[2022-08-02 06:57] LABS: CREATININE 10.1 mg/dL (0.5-1.0)
[2022-08-02] MEDS ORDERED: NOVOLIN N100 UNIT/3 SC (11:28)
[2022-08-02] MEDS ORDERED: NOVOLIN R100 UNIT/1 SC (11:28)
[2022-08-02] MEDS ORDERED: ZESTRIL40 MG PO (11:29)
[2022-08-02] MEDS ORDERED: HYDRALAZINE50 MG PO (11:29)
[2022-08-02] MEDS ORDERED: SODIUM BICAR650 MG PO (11:32)
[2022-08-02] MEDS ORDERED: RENVELA800 MG PO (11:35)
[2022-08-02 11:43] VITALS: BP 197/70
== END 2022-08-02 13:20 | disposition home or self-care (01) ==
LOC: ED 09:55 → ED-I 12:15 → ED 12:52 → MS2 12:53
PROVIDERS: Family Medicine; Internal Medicine Nephrology; Nurse Practitioner; ADMIT Internal Medicine; ATTEND Internal Medicine
DX: N17.9 Acute kidney failure, unspecified (principal); E11.649 Type 2 diabetes mellitus with hypoglycemia without coma; I12.0 Hypertensive chronic kidney disease with stage 5 chronic kidney disease or end stage renal disease; E11.22 Type 2 diabetes mellitus with diabetic chronic kidney disease; N18.5 Chronic kidney disease, stage 5; D72.829 Elevated white blood cell count, unspecified; E87.20 Acidosis, unspecified; E78.5 Hyperlipidemia, unspecified; E86.9 Volume depletion, unspecified; N25.81 Secondary hyperparathyroidism of renal origin; D63.1 Anemia in chronic kidney disease; M10.9 Gout, unspecified; M54.50 Low back pain, unspecified; F17.210 Nicotine dependence, cigarettes, uncomplicated; Z79.4 Long term (current) use of insulin; Z87.11 Personal history of peptic ulcer disease; Z58.6 Inadequate drinking-water supply; Z59.48 Other specified lack of adequate food; Z20.822 Contact with and (suspected) exposure to COVID-19
CPT/HCPCS: Q5106 EC

== ENCOUNTER 2023-01-20 11:42 | Emergency (ER) | payer MEDICARE ==
[2023-01-20] VITALS (9 sets, daily range): BP systolic 133–203; BP diastolic 63–98
[~2023-01-20] VITALS: Ht 157.5 cm; Wt 65.0 kg
[~2023-01-20 11:42] MED LIST changes: +HYDRALAZINE50 MG PO; +NOVOLIN N100 UNIT/3 SC; +NOVOLIN R100 UNIT/1 SC; +RENVELA800 MG PO; +SODIUM BICAR650 MG PO; +ZESTRIL40 MG PO
[2023-01-20 12:56] LABS: BASO% 0.4 % (0-3); EOS% 1.7 % (0-8); IMMATURE GRANULOCYTES 0.2 % (0.0-5.0); MEAN CELL VOLUME 101.9 fL CALC (80.0-100.0); MEAN CORPUSCULAR HGB 32.2 pG CALC (26.0-32.0); MEAN CORPUSCULAR HGB CONC 31.6 g/dL CAL (32.0-36.0); MONO% 6.3 % (2-13); NEUT# 7.28 thou/uL (2.00-7.15); NEUT% 76.4 % (42-76); RED BLOOD COUNT 3.63 mill/uL (4.20-5.60); RED CELL DISTRI WIDTH 15.4 % (11.5-15.5)
[2023-01-20 13:09] LABS: HEMOGLOBIN 11.7 g/dl (12.0-16.0)
[2023-01-20 13:16] LABS: ALBUMIN 3.1 g/dL (3.2-5.0); POTASSIUM 4.3 mmol/l (3.5-5.1); TOTAL PROTEIN 5.3 g/dL (6.3-8.2)
[2023-01-20 13:17] LABS: BILIRUBIN, TOTAL 0.3 mg/dL (0.02-1.3); CREATININE 4.6 mg/dL (0.5-1.0)
== END 2023-01-20 17:45 ==
LOC: ED 11:42
PROVIDERS: Family Medicine
PROC: 06HY33Z Insertion of Infusion Device into Lower Vein, Percutaneous Approach (ICD-10-PCS; principal; 2023-01-20)
DX: T82.7XXA Infection and inflammatory reaction due to other cardiac and vascular devices, implants and grafts, initial encounter (principal); L03.114 Cellulitis of left upper limb; I12.0 Hypertensive chronic kidney disease with stage 5 chronic kidney disease or end stage renal disease; E11.22 Type 2 diabetes mellitus with diabetic chronic kidney disease; N18.6 End stage renal disease; G40.909 Epilepsy, unspecified, not intractable, without status epilepticus; F17.200 Nicotine dependence, unspecified, uncomplicated; Y83.2 Surgical operation with anastomosis, bypass or graft as the cause of abnormal reaction of the patient, or of later complication, without mention of misadventure at the time of the procedure; Z99.2 Dependence on renal dialysis; Z79.4 Long term (current) use of insulin; Z88.4 Allergy status to anesthetic agent

== ENCOUNTER 2023-02-01 12:11 | Emergency (ER) | payer MEDICARE ==
[~2023-02-01] VITALS: Ht 157.5 cm; Wt 60.7 kg
[2023-02-01] VITALS (32 sets, daily range): BP systolic 100–196; BP diastolic 43–102
[2023-02-01 13:19] LABS: BASO% 0.3 % (0-3); EOS% 2.3 % (0-8); HEMATOCRIT 33.2 % (37.0-47.0); HEMOGLOBIN 10.5 g/dl (12.0-16.0); IMMATURE GRANULOCYTES 0.3 % (0.0-5.0); LYMPH% 16.6 % (15-41); MEAN CELL VOLUME 100.6 fL CALC (80.0-100.0); MEAN CORPUSCULAR HGB 31.8 pG CALC (26.0-32.0); MEAN CORPUSCULAR HGB CONC 31.6 g/dL CAL (32.0-36.0); MONO% 7.6 % (2-13); NEUT# 6.89 thou/uL (2.00-7.15); NEUT% 72.9 % (42-76); RED BLOOD COUNT 3.3 mill/uL (4.20-5.60); RED CELL DISTRI WIDTH 14.4 % (11.5-15.5)
[2023-02-01 13:43] LABS: ALBUMIN 3.2 g/dL (3.2-5.0); BILIRUBIN, TOTAL 0.2 mg/dL (0.02-1.3); CREATININE 4.1 mg/dL (0.5-1.0); POTASSIUM 3.9 mmol/l (3.5-5.1); TOTAL PROTEIN 5.5 g/dL (6.3-8.2)
== END 2023-02-01 21:57 | disposition short-term general hospital (02) ==
LOC: ED 12:11
PROVIDERS: Nurse Practitioner
DX: I73.9 Peripheral vascular disease, unspecified (principal); I13.2 Hypertensive heart and chronic kidney disease with heart failure and with stage 5 chronic kidney disease, or end stage renal disease; E11.22 Type 2 diabetes mellitus with diabetic chronic kidney disease; N18.6 End stage renal disease; I50.9 Heart failure, unspecified; G40.909 Epilepsy, unspecified, not intractable, without status epilepticus; F17.200 Nicotine dependence, unspecified, uncomplicated; Z99.2 Dependence on renal dialysis; Z79.4 Long term (current) use of insulin; M79.89 Other specified soft tissue disorders; M79.602 Pain in left arm

== ENCOUNTER 2023-02-19 18:43 | Emergency (ER) | payer MEDICARE ==
[~2023-02-19] VITALS: Ht 157.5 cm; Wt 62.6 kg
[2023-02-19 18:55] VITALS: BP 178/98
[2023-02-19 19:01] VITALS: BP 183/104
[2023-02-19] MEDS ORDERED: LORTAB 1010 MG PO (19:36)
[2023-02-19] MEDS ORDERED: NEURONTIN300 MG PO (19:36)
[2023-02-19] MEDS ORDERED: ELAVIL25 M1 PO (19:36)
[2023-02-19 19:38] VITALS: BP 176/69
[2023-02-19 19:42] VITALS: BP 176/69
== END 2023-02-19 20:19 | disposition home or self-care (01) ==
LOC: ED 18:43
DX: G90.512 Complex regional pain syndrome I of left upper limb (principal); I11.0 Hypertensive heart disease with heart failure; I50.9 Heart failure, unspecified; E11.9 Type 2 diabetes mellitus without complications; G40.909 Epilepsy, unspecified, not intractable, without status epilepticus; Z79.4 Long term (current) use of insulin

== ENCOUNTER 2023-03-17 19:37 | Emergency (ER) | payer MEDICARE ==
[~2023-03-17] VITALS: Ht 157.5 cm; Wt 90.0 kg
[~2023-03-17 19:37] MED LIST changes: +ELAVIL25 M1 PO; +LORTAB 1010 MG PO; +NEURONTIN300 MG PO
[2023-03-17 20:19] LABS: BASO% 0.4 % (0-3); EOS% 1.9 % (0-8); HEMOGLOBIN 10.6 g/dl (12.0-16.0); IMMATURE GRANULOCYTES 0.2 % (0.0-5.0); LYMPH% 22.2 % (15-41); MEAN CELL VOLUME 101.2 fL CALC (80.0-100.0); MEAN CORPUSCULAR HGB 32.5 pG CALC (26.0-32.0); MEAN CORPUSCULAR HGB CONC 32.1 g/dL CAL (32.0-36.0); MONO% 10.7 % (2-13); NEUT# 5.43 thou/uL (2.00-7.15); NEUT% 64.6 % (42-76); RED BLOOD COUNT 3.26 mill/uL (4.20-5.60); RED CELL DISTRI WIDTH 14.3 % (11.5-15.5)
[2023-03-17 20:33] LABS: ALBUMIN 2.7 g/dL (3.2-5.0); POTASSIUM 4.3 mmol/l (3.5-5.1); TOTAL PROTEIN 4.8 g/dL (6.3-8.2)
[2023-03-17 20:34] LABS: BILIRUBIN, TOTAL 0.1 mg/dL (0.02-1.3); CREATININE 3.1 mg/dL (0.5-1.0)
[2023-03-17] MEDS ORDERED: LORTAB 1010 MG PO (21:16)
[2023-03-17 21:36] VITALS: BP 126/49
== END 2023-03-17 21:48 | disposition home or self-care (01) ==
LOC: ED 19:37
PROVIDERS: Emergency Medicine
DX: I87.2 Venous insufficiency (chronic) (peripheral) (principal); I13.2 Hypertensive heart and chronic kidney disease with heart failure and with stage 5 chronic kidney disease, or end stage renal disease; E11.22 Type 2 diabetes mellitus with diabetic chronic kidney disease; N18.6 End stage renal disease; I50.9 Heart failure, unspecified; I25.10 Atherosclerotic heart disease of native coronary artery without angina pectoris; Z99.2 Dependence on renal dialysis; Z79.4 Long term (current) use of insulin; M79.602 Pain in left arm

== ENCOUNTER 2023-04-22 00:02 | Emergency (ER) | payer MEDICARE ==
[~2023-04-22] VITALS: Ht 157.5 cm; Wt 68.0 kg
[2023-04-22] MEDS ORDERED: LORTAB 1010 MG PO (00:56)
[2023-04-22 01:15] VITALS: BP 169/79
== END 2023-04-22 01:15 | disposition home or self-care (01) ==
LOC: ED 00:02
DX: M79.602 Pain in left arm (principal); I13.2 Hypertensive heart and chronic kidney disease with heart failure and with stage 5 chronic kidney disease, or end stage renal disease; E11.22 Type 2 diabetes mellitus with diabetic chronic kidney disease; N18.6 End stage renal disease; I50.9 Heart failure, unspecified; G40.909 Epilepsy, unspecified, not intractable, without status epilepticus; Z99.2 Dependence on renal dialysis; Z79.4 Long term (current) use of insulin

== ENCOUNTER 2023-05-03 02:58 | Emergency (ER) | payer MEDICARE ==
[~2023-05-03] VITALS: Ht 157.5 cm; Wt 80.0 kg
[2023-05-03] MEDS ORDERED: HYDROCO/APAP1 T10 PO (04:00)
[2023-05-03 04:17] VITALS: BP 180/99
== END 2023-05-03 04:46 | disposition home or self-care (01) ==
LOC: ED 02:58
DX: G90.512 Complex regional pain syndrome I of left upper limb (principal); I13.2 Hypertensive heart and chronic kidney disease with heart failure and with stage 5 chronic kidney disease, or end stage renal disease; E11.22 Type 2 diabetes mellitus with diabetic chronic kidney disease; N18.6 End stage renal disease; I50.9 Heart failure, unspecified; E11.51 Type 2 diabetes mellitus with diabetic peripheral angiopathy without gangrene; G40.909 Epilepsy, unspecified, not intractable, without status epilepticus; Z99.2 Dependence on renal dialysis; Z79.4 Long term (current) use of insulin

== ENCOUNTER 2023-05-10 12:45 | Emergency (ER) | payer MEDICARE ==
[~2023-05-10] VITALS: Ht 157.5 cm; Wt 58.8 kg
[~2023-05-10 12:45] MED LIST changes: +HYDROCO/APAP1 T10 PO
[2023-05-10] MEDS ORDERED: LASIX 20 MG TAB20 MG PO (13:15)
[2023-05-10] MEDS ORDERED: APRESOLINE50 MG PO (13:21)
[2023-05-10] MEDS ORDERED: PROTONIX40 M2 PO (13:24)
[2023-05-10] MEDS ORDERED: COREG25 MG PO (13:25)
[2023-05-10] MEDS ORDERED: LANTUS100 UNIT SC (13:26)
[2023-05-10] MEDS ORDERED: RENVELA800 MG PO (13:27)
[2023-05-10] MEDS ORDERED: NEURONTIN100 MG PO (14:29)
[2023-05-10 14:47] VITALS: BP 182/67
[2023-05-11] MEDS ORDERED: HYDROCODONE BIT10 MG PO (14:56)
[2023-05-11] MEDS ORDERED: LORTAB 1010 MG PO (15:08)
== END 2023-05-10 14:55 | disposition home or self-care (01) ==
LOC: ED 12:45
DX: M79.602 Pain in left arm (principal); G89.29 Other chronic pain; I13.2 Hypertensive heart and chronic kidney disease with heart failure and with stage 5 chronic kidney disease, or end stage renal disease; E11.22 Type 2 diabetes mellitus with diabetic chronic kidney disease; N18.6 End stage renal disease; I50.9 Heart failure, unspecified; G40.909 Epilepsy, unspecified, not intractable, without status epilepticus; Z99.2 Dependence on renal dialysis; Z79.4 Long term (current) use of insulin

== ENCOUNTER 2023-05-11 08:47 | Emergency (ER) | payer MEDICARE ==
[~2023-05-11] VITALS: Ht 157.5 cm; Wt 58.5 kg
[2023-05-11] VITALS (18 sets, daily range): BP systolic 98–210; BP diastolic 46–73
[~2023-05-11 08:47] MED LIST changes: +APRESOLINE50 MG PO; +COREG25 MG PO; +LANTUS100 UNIT SC; +LASIX 20 MG TAB20 MG PO; +NEURONTIN100 MG PO; +PROTONIX40 M2 PO
[2023-05-11] MEDS ORDERED: HYDROCODONE BIT10 MG PO (14:56)
[2023-05-11] MEDS ORDERED: LORTAB 1010 MG PO (15:08)
== END 2023-05-11 15:10 | disposition home or self-care (01) ==
LOC: ED 08:47
DX: M79.602 Pain in left arm (principal); I11.0 Hypertensive heart disease with heart failure; I50.9 Heart failure, unspecified; E11.9 Type 2 diabetes mellitus without complications; G40.909 Epilepsy, unspecified, not intractable, without status epilepticus; Z79.4 Long term (current) use of insulin

== ENCOUNTER 2023-06-03 15:21 | Emergency (ER) | payer MEDICARE ==
[~2023-06-03] VITALS: Ht 157.5 cm; Wt 62.0 kg
[2023-06-03] VITALS (13 sets, daily range): BP systolic 158–216; BP diastolic 65–99
[~2023-06-03 15:21] MED LIST changes: +HYDROCODONE BIT10 MG PO
[2023-06-03 16:11] LABS: BASO% 0.5 % (0-3); EOS% 1.9 % (0-8); HEMOGLOBIN 10.3 g/dl (12.0-16.0); IMMATURE GRANULOCYTES 0.3 % (0.0-5.0); LYMPH% 16.5 % (15-41); MEAN CELL VOLUME 100.3 fL CALC (80.0-100.0); MEAN CORPUSCULAR HGB 32.3 pG CALC (26.0-32.0); MEAN CORPUSCULAR HGB CONC 32.2 g/dL CAL (32.0-36.0); NEUT# 6.86 thou/uL (2.00-7.15); NEUT% 71.8 % (42-76); RED BLOOD COUNT 3.19 mill/uL (4.20-5.60); RED CELL DISTRI WIDTH 14.3 % (11.5-15.5)
[2023-06-03 16:23] LABS: TOTAL PROTEIN 5.7 g/dL (6.3-8.2)
[2023-06-03 16:28] LABS: ALBUMIN 3.3 g/dL (3.2-5.0); BILIRUBIN, TOTAL 0.5 mg/dL (0.02-1.3); CREATININE 5.7 mg/dL (0.5-1.0); POTASSIUM 3.4 mmol/l (3.5-5.1)
== END 2023-06-03 18:44 | disposition short-term general hospital (02) ==
LOC: ED 15:21
PROVIDERS: Family Medicine
DX: I21.4 Non-ST elevation (NSTEMI) myocardial infarction (principal); E11.22 Type 2 diabetes mellitus with diabetic chronic kidney disease; I13.2 Hypertensive heart and chronic kidney disease with heart failure and with stage 5 chronic kidney disease, or end stage renal disease; I50.9 Heart failure, unspecified; N18.6 End stage renal disease; I87.8 Other specified disorders of veins; G90.512 Complex regional pain syndrome I of left upper limb; G40.909 Epilepsy, unspecified, not intractable, without status epilepticus; J44.9 Chronic obstructive pulmonary disease, unspecified; Z79.4 Long term (current) use of insulin; Z99.2 Dependence on renal dialysis; Z91.15 Patient's noncompliance with renal dialysis
CPT/HCPCS: J1650

== ENCOUNTER 2023-07-01 22:55 | Emergency (ER) | payer MEDICARE ==
[~2023-07-01] VITALS: Ht 157.5 cm; Wt 65.0 kg
[2023-07-01 23:30] VITALS: BP 203/107
[2023-07-01 23:45] VITALS: BP 215/87
[2023-07-01 23:47] VITALS: BP 197/88
[2023-07-01] MEDS ORDERED: LORTAB 1010 MG PO (23:50)
[2023-07-01 23:52] VITALS: BP 197/88
== END 2023-07-02 00:23 | disposition home or self-care (01) ==
LOC: ED 22:55
DX: M79.622 Pain in left upper arm (principal); I13.2 Hypertensive heart and chronic kidney disease with heart failure and with stage 5 chronic kidney disease, or end stage renal disease; E11.22 Type 2 diabetes mellitus with diabetic chronic kidney disease; N18.6 End stage renal disease; I50.9 Heart failure, unspecified; G40.909 Epilepsy, unspecified, not intractable, without status epilepticus; Z99.2 Dependence on renal dialysis; Z79.4 Long term (current) use of insulin; Z98.890 Other specified postprocedural states

== ENCOUNTER 2023-07-08 19:09 | Emergency (ER) | payer MEDICARE ==
[2023-07-08] VITALS (12 sets, daily range): BP systolic 126–234; BP diastolic 86–198
[~2023-07-08] VITALS: Ht 154.9 cm; Wt 56.6 kg
[2023-07-08 19:59] LABS: BASO% 0.5 % (0-3); EOS% 1.9 % (0-8); HEMATOCRIT 31.5 % (37.0-47.0); HEMOGLOBIN 10.4 g/dl (12.0-16.0); IMMATURE GRANULOCYTES 0.2 % (0.0-5.0); LYMPH% 15.7 % (15-41); MEAN CELL VOLUME 102.9 fL CALC (80.0-100.0); MONO% 10.1 % (2-13); NEUT# 6.16 thou/uL (2.00-7.15); NEUT% 71.6 % (42-76); RED BLOOD COUNT 3.06 mill/uL (4.20-5.60); RED CELL DISTRI WIDTH 13.8 % (11.5-15.5)
[2023-07-08 20:16] LABS: ALBUMIN 3.3 g/dL (3.2-5.0); BILIRUBIN, TOTAL 0.4 mg/dL (0.02-1.3); MAGNESIUM 3.8 mg/dL (1.6-2.3); TOTAL PROTEIN 5.6 g/dL (6.3-8.2)
[2023-07-08 20:18] LABS: CREATININE 5.3 mg/dL (0.5-1.0); POTASSIUM 4.2 mmol/l (3.5-5.1)
[2023-07-08] MEDS ORDERED: KEPPRA500 M2 PO (21:22)
== END 2023-07-08 21:45 | disposition home or self-care (01) ==
LOC: ED 19:09
PROVIDERS: Family Medicine
DX: R56.9 Unspecified convulsions (principal); E11.22 Type 2 diabetes mellitus with diabetic chronic kidney disease; I50.9 Heart failure, unspecified; I48.91 Unspecified atrial fibrillation; I13.2 Hypertensive heart and chronic kidney disease with heart failure and with stage 5 chronic kidney disease, or end stage renal disease; N18.6 End stage renal disease; E11.51 Type 2 diabetes mellitus with diabetic peripheral angiopathy without gangrene; G90.512 Complex regional pain syndrome I of left upper limb; Z79.4 Long term (current) use of insulin; Z99.2 Dependence on renal dialysis